=== PATIENT | female | born 1965 | race African-American/Black ===

== ENCOUNTER 2018-09-19 10:48 | Inpatient (IN) | payer MEDICAID ==
[~2018-09-19] VITALS: Ht 162.6 cm; Wt 101.2 kg
[2018-09-19 11:27] LABS: BASOPHILS % 0.4 % (0.0-2.0); EOSINOPHILS % 2.4 % (0.0-5.0); HEMOGLOBIN. 12.9 g/dL (12.0-16.0); LYMPHOCYTES % 32.9 % (20.0-50.0); MEAN CORPUSCULAR HEMOGLOBIN 31.9 pg (28.0-32.0); MEAN CORPUSCULAR VOLUME 94.2 fL (81.0-99.0); MEAN PLATELET VOLUME 7.3 fl (7.4-10.4); MONOCYTES % 9.7 % (2.0-8.0); NEUTROPHILS % 54.6 % (40.0-76.0); PLATELET 280 x1000/uL (130-400); RED BLOOD CELL COUNT 4.04 mill/uL (4.2-5.4); RED CELL DISTRIBUTION WIDTH 14.2 % (11.6-14.6)
[2018-09-19 11:33] LABS: CHLORIDE 109 mEq/L (98-107); PROTHROMBIN TIME 10.1 sec (9.6-11.0)
[2018-09-19 11:37] LABS: ETHANOL BLOOD < 10 mg/dL
[2018-09-19 11:40] LABS: LDL CHOLESTEROL 80 mg/dL (5-100)
[2018-09-19] MEDS ORDERED: IOHEXOL-350 100 ML BOTTLE ONE (13:02)
[2018-09-19 15:08] LABS: CLARITY URINE CLEAR (CLEAR); COLOR URINE YELLOW (YELLOW); KETONES URINE NEGATIVE (NEGATIVE); LEUKOCYTE ESTERASE URINE NEGATIVE (NEGATIVE); NITRITE URINE NEGATIVE (NEGATIVE); OCCULT BLOOD URINE NEGATIVE (NEGATIVE); PROTEIN URINE NEGATIVE (NEGATIVE); SPECIFIC GRAVITY URINE 1.047 (1.005-1.030); UROBILINOGEN URINE 0.2 E.U./dL (0.2-1.0)
[2018-09-19 15:35] LABS: *AMPHETAMINES SCREEN URINE NEGATIVE (NEGATIVE); *BARBITURATES SCREEN URINE NEGATIVE (NEGATIVE); *BENZODIAZEPINES SCREEN URINE NEGATIVE (NEGATIVE)
[2018-09-19 15:36] LABS: *COCAINE SCREEN URINE NEGATIVE (NEGATIVE); CANNABINOID URINE SCREEN NEGATIVE (NEGATIVE); METHADONE URINE SCREEN NEGATIVE (NEGATIVE); OPIATES URINE SCREEN NEGATIVE (NEGATIVE); PHENCYCLIDINE URINE SCREEN NEGATIVE (NEGATIVE)
[2018-09-19] MEDS ORDERED: HYDROCODONE/ACETAMINOPHEN 5/325MG TABLET PO PRN (15:45)
[2018-09-19] MEDS ORDERED: ACETAMINOPHEN 325MG TABLET PO PRN (15:45)
[2018-09-19] MEDS ORDERED: AMLODIPINE 10MG TABLET PO SCH (15:45)
[2018-09-19] MEDS ORDERED: ONDANSETRON HCL 4MG/2ML INJ IV PRN (15:45)
[2018-09-19] MEDS ORDERED: MAGNESIUM/ALUMINUM HYDROXIDE/SIMETHICONE 30ML UDC PO PRN (15:45)
[2018-09-19] MEDS ORDERED: GUAIFENESIN 200MG/10ML SUGAR FREE UDC PO PRN (15:45)
[2018-09-19] MEDS ORDERED: CLONIDINE 0.1MG TABLET PO PRN (15:45)
[2018-09-19] MEDS ORDERED: DOCUSATE SODIUM 100MG CAPSULE PO PRN (15:45)
[2018-09-19 21:35] VITALS: BP 138/86
[2018-09-19] MEDS ORDERED: ATORVASTATIN CALCIUM 20MG TABLET PO SCH (22:00)
[2018-09-19] MEDS ORDERED: ASPI-1159 MT (22:47)
[2018-09-19] MEDS ORDERED: Lipitor PO (22:47)
[2018-09-19] MEDS ORDERED: VITAMIN D PO (22:47)
[2018-09-19] MEDS ORDERED: hydrochlorothiazide PO (22:47)
[2018-09-20 00:24] VITALS: BP 110/74
[2018-09-20 04:00] VITALS: BP 120/85
[2018-09-20 07:21] LABS: BASOPHILS % 0.6 % (0.0-2.0); EOSINOPHILS % 3.1 % (0.0-5.0); HEMATOCRIT. 37.1 % (36.0-48.0); HEMOGLOBIN. 12.6 g/dL (12.0-16.0); LYMPHOCYTES % 37.8 % (20.0-50.0); MEAN CORPUSCULAR HEMOGLOBIN 31.8 pg (28.0-32.0); MEAN CORPUSCULAR VOLUME 93.8 fL (81.0-99.0); MEAN PLATELET VOLUME 7.4 fl (7.4-10.4); NEUTROPHILS % 48.5 % (40.0-76.0); PLATELET 274 x1000/uL (130-400); RED BLOOD CELL COUNT 3.96 mill/uL (4.2-5.4); RED CELL DISTRIBUTION WIDTH 13.9 % (11.6-14.6)
[2018-09-20 08:00] VITALS: BP 123/78
[2018-09-20 08:10] LABS: CHLORIDE 109 mEq/L (98-107)
[2018-09-20 08:30] LABS: LDL CHOLESTEROL 93 mg/dL (5-100)
[2018-09-20 08:31] LABS: HDL CHOLESTEROL 70 mg/dL (40-59)
[2018-09-20] MEDS ORDERED: ASPIRIN 81MG EC TABLET PO SCH (09:00)
[2018-09-20] MEDS ORDERED: CLOP75TA16 PO (09:58)
[2018-09-20] MEDS ORDERED: AMLO10TA80 PO (09:58)
[2018-09-20 10:28] VITALS: BP 123/78
== END 2018-09-20 11:10 | disposition home or self-care (01) | DRG 47 ==
LOC: ER 10:48 → 6WST 12:38 → EDBEDREQSVC 12:45 → EDBEDREQTM 12:45 → EDBEDREQ 12:45 → SUPCPDRO 15:34 → ENRESERV 21:08
PROVIDERS: ADMIT Hospitalist; ATTEND Hospitalist
DX: G45.9 Transient cerebral ischemic attack, unspecified (principal); E83.52 Hypercalcemia; E78.00 Pure hypercholesterolemia, unspecified; I10 Essential (primary) hypertension; Z86.73 Personal history of transient ischemic attack (TIA), and cerebral infarction without residual deficits; Z98.51 Tubal ligation status
CPT/HCPCS: 36415; 70496; 70498; 70551; 71045; 80061; 80305; 80320; 82962; 83721; 84484; 93005; 99285; Q9967; G0480